=== PATIENT | male | born 1955 | race Caucasian/White ===

== ENCOUNTER 2018-04-01 11:52 | Emergency (ER) | payer OTHER ==
[~2018-04-01] VITALS: Wt 82.1 kg
[2018-04-01 11:54] VITALS: BP 132/81; PULSE 79; RESP 20
[2018-04-01] MEDS ORDERED: ZOLP5TAB PO (12:41)
--- NOTE | 2018-04-01 20:30 | ERD ---
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 States that he travels between [place] in the . Reports that he suffers from insomnia, for the past 3 months. States that because he has not been getting sleep, he feels dizzy. States that he takes Toprol, aspirin grams. Denies any chest pain, shortness of breath, nausea, vomiting, diarrhea, neck stiffness. Patient reports that he is tried taking everything for melatonin, trazodone, promethazine without any relief of his symptoms. Reports that he did take Ambien, 40 years ago which may have helped with the symptoms. Patient states that he is here for a prescription to sleep better before he sees his physician, next week. Denies smoking, alcohol use, drug use. Denies suicidal/homicidal ideations. ROS All systems reviewed and are negative except as per history of present illness. Medications Home Meds Active Scripts Zolpidem Tartrate* (Ambien*) 5 Mg Tablet, 5 MG PO HS PRN for INSOMNIA, #10 TAB Prov:JACKY BISHOP PA-C 04/01/18 Allergies Allergies: Coded Allergies: No Known Allergy (Unverified , 04/01/18) PMhx/Soc Medical and Surgical Hx: pt denies Surgical Hx Hx Cardiac Disorders: Yes (HTN, PVCs) Hx Alcohol Use: Yes (hx) Hx Substance Use: No Hx Tobacco Use: Yes Smoking Status: Former smoker FmHx Family History: No diabetes, No coronary disease Physical Exam Vitals Vital Signs Date Temp Pulse Resp B/P (MAP) Pulse Ox O2 O2 Flow FiO2 Time Delivery Rate 04/01/18 98.0 79 20 132/81 98 11:54 (98) Physical Exam Const: Gyz-xak-[id number], well-nourished. In no acute distress. Head: Atraumatic, normocephalic Eyes: Normal Conjunctiva without injection. No purulent discharge. PERRL. EOMI ENT: Normal external ear. Ear canal without erythema. Tympanic membrane pearly cortes without effusion or bulging. Nasal canal clear with normal turbinates. Moist oropharynx without tonsillar exudates. Non-erythematous pharynx. Uvula midline. No drooling. No trismus. Neck: Full range of motion. No meningismus. No cervical lymphadenopathy. Resp: Clear to auscultation bilaterally. No wheezing, rhonchi, rales, or crackles. No accessory muscle use. No retractions. Cardio: Regular rate and rhythm. No murmurs, rubs or gallops. Abd: Soft, non tender, non distended. Normal bowel sounds. No palpable masses. No rebound tenderness. No guarding. Skin: No petechiae or rashes Back: No midline tenderness. No CVA tenderness. Ext: No cyanosis, or edema. Neur: Awake and alert. Psych: Normal Mood and Affect Procedures/MDM 62-year-old male patient with a past medical history of PVCs presents to the ED complaining of not be able to sleep. Patient is afebrile and nontoxic- appearing. Patient's blood pressure is 132/81. Blood Pressure Assessment: Patient's blood pressure was elevated (>120/80) but appears stable without evidence of hypertension emergency or urgency. The patient was counseled about the risks of hypertension and urged to pursue outpatient monitoring and therapy within a week with their primary care physician. Patient's insomnia could likely be secondary to PTSD. Therapy with a psychologist recommended. Low suspicion for psychiatric where patient needs to be on a psychiatric hold. Low suspicion for acute myocardial infarction, pneumothorax, pericarditis, myocarditis, endocarditis, pneumonia, cardiac tamponade, pulmonary embolism, pleural effusion, AAA, aortic dissection, Vasu rhaave's syndrome, cardiac dysrhythmias,meningitis, intracranial bleed, seizure, stroke, TIA or other emergent conditions. Discussed with Dr. Mcclain my supervising physician who agreed with the management and discharge plan. Diagnosis: Insomnia Discharge medications: Shant Follow up with primary care physician in 1-2 days. Instructed patient to return to the ED sooner for any worsening symptoms. Patient's questions were answered. Patient is hemodynamically stable. Patient understood and agreed with discharge plan. Patient discharged stable. Disclaimer: Inadvertent spelling and grammatical errors are likely due to EHR/dictation software use and do not reflect on the overall quality of patient care. Also, please note that the electronic time recorded on this note does not necessarily reflect the actual time of the patient encounter. Departure Diagnosis: Primary Impression: Insomnia Insomnia type: unspecified Qualified Codes: G47.00 - Insomnia, unspecified Condition: Stable Patient Instructions: Treating Insomnia, Insomnia Referrals: [facility] YOU HAVE RECEIVED A MEDICAL SCREENING EXAM AND THE RESULTS INDICATE THAT YOU DO NOT HAVE A CONDITION THAT REQUIRES URGENT TREATMENT IN THE EMERGENCY DEPARTMENT. FURTHER EVALUATION AND TREATMENT OF YOUR CONDITION CAN WAIT UNTIL YOU ARE SEEN IN YOUR DOCTORS OFFICE WITHIN THE NEXT 1-2 DAYS. IT IS YOUR RESPONSIBILITY TO MAKE AN APPOINTMENT FOR FOLOW-UP CARE. IF YOU HAVE A PRIMARY DOCTOR --you should call your primary doctor and schedule an appointment IF YOU DO NOT HAVE A PRIMARY DOCTOR YOU CAN CALL OUR PHYSICIAN REFERRAL HOTLINE AT IF YOU CAN NOT AFFORD TO SEE A PHYSICIAN YOU CAN CHOSE FROM THE FOLLOWING [facility] [address] [facility] [address] [facility] [address] [facility] [address] [facility] [address] [facility]. [facility] [address] [facility]. [facility] YOU HAVE RECEIVED A MEDICAL SCREENING EXAM AND THE RESULTS INDICATE THAT YOU DO NOT HAVE A CONDITION THAT REQUIRES URGENT TREATMENT IN THE EMERGENCY DEPARTMENT. FURTHER EVALUATION AND TREATMENT OF YOUR CONDITION CAN WAIT UNTIL YOU ARE SEEN IN YOUR DOCTORS OFFICE WITHIN THE NEXT 1-2 DAYS. IT IS YOUR RESPONSIBILITY TO MAKE AN APPOINTMENT FOR FOLOW-UP CARE. IF YOU HAVE A PRIMARY DOCTOR --you should call your primary doctor and schedule and appointment IF YOU DO NOT HAVE A PRIMARY DOCTOR YOU CAN CALL OUR PHYSICIAN REFERRAL HOTLINE AT . IF YOU CAN NOT AFFORD TO SEE A PHYSICIAN YOU CAN CHOSE FROM THE FOLLOWING [facility] INSTITUTIONS: [facility] [id number] [place] [address] [facility] [address] [place] [address] [facility] + [facility] [address] [place] [address] [facility] URGENT CARE/SPECIALTIES Additional Instructions: Call your primary care doctor TOMORROW for an appointment during the next 2-3 days.See the doctor sooner or return here if your condition worsens before your appointment time. JACKY BISHOP PA-C Apr 01, 2018 20:30
== END 2018-04-01 12:47 | disposition home or self-care (01) ==
LOC: FTE 11:52
DX: G47.00 Insomnia, unspecified (principal); I10 Essential (primary) hypertension; Z87.891 Personal history of nicotine dependence
CPT/HCPCS: 99283